=== PATIENT | female | born 1975 | race African-American/Black ===

== ENCOUNTER 2017-04-29 23:49 | Emergency (ER) | payer OTHER ==
[2017-04-30 00:01] VITALS: BP 121/75; PULSE 83; TEMP 98.3; BMI 25.9
== END 2017-04-30 01:48 | disposition left against medical advice (07) ==
LOC: JER 23:49
DX: Z53.21 Procedure and treatment not carried out due to patient leaving prior to being seen by health care provider (principal)
CPT/HCPCS: 99281-25

== ENCOUNTER 2018-05-09 04:55 | Day surgery (SDC) | payer OTHER ==
[~2018-05-09 04:55] MED LIST: ACETAMINOPHEN 325 MG TABLET (FP) PO PRN; ACETYLCHOLINE 1:100 INTRA-OCUL 20 MG/2 ML KIT IO ONE; OFLOXACIN 0.3% OPHTHALMIC SOLUTION 5 ML BOTTLE OP SCH; TRIAMCINOLONE ACET 40MG/1ML VIAL IM ONE
[2018-05-09] MEDS ORDERED: OFLOXACIN 0.3% OPHTHALMIC SOLUTION 5 ML BOTTLE ONE (10:26)
[2018-05-09 10:38] VITALS: BMI 39.5
[2018-05-09] MEDS ORDERED: TRIAMCINOLONE ACET 40MG/1ML VIAL ONE (12:52)
[2018-05-09] MEDS ORDERED: LIDOCAINE HCL/PF 2% SDV 5ML VIAL ONE (12:56)
[2018-05-09] MEDS ORDERED: MIDAZOLAM HCL 2 MG/2 ML SINGLE DOSE VIAL ONE (12:56)
[2018-05-09] MEDS ORDERED: PROPOFOL 20 ML ONE (12:56)
[2018-05-09] MEDS ORDERED: DEXAMETHASONE SOD PHOSPHATE 4 MG/1 ML VIAL ONE (13:21)
[2018-05-09] MEDS ORDERED: ONDANSETRON 4 MG/2 ML VIAL IVPUSH PRN (13:37)
[2018-05-09] MEDS ORDERED: ACETYLCHOLINE 1:100 INTRA-OCUL 20 MG/2 ML KIT IO ONE (13:37)
[2018-05-09] MEDS ORDERED: oxyCODONE HCL 5 MG TABLET PO PRN (13:37)
[2018-05-09] MEDS ORDERED: LACTATED RINGERS SOLUTION 1,000 ML IV SCH (13:45)
[2018-05-09] MEDS ORDERED: NEOSTIGMINE METHYLSULFATE 0.5 MG/ML - 10 ML MDV ONE (13:59)
[2018-05-09] MEDS ORDERED: GLYCOPYRROLATE 0.2 MG/1 ML VIAL ONE (14:01)
[2018-05-09] MEDS ORDERED: SUCCINYLCHOLINE CHLORIDE 200 MG/10 ML VIAL ONE (14:03)
[2018-05-09] MEDS ORDERED: FLUORESCEIN NA 1 EA STRIP ONE (14:26)
[2018-05-09] MEDS ORDERED: TRIAMCINOLONE ACET 40MG/1ML VIAL IM ONE (14:27)
[2018-05-09] MEDS ORDERED: ONDANSETRON 4 MG/2 ML VIAL ONE (15:10)
[2018-05-09] MEDS ORDERED: PROMETHAZINE HCL 25 MG/1 ML VIAL ONE (15:29)
[2018-05-09] MEDS ORDERED: PROMETHAZINE HCL 25 MG/1 ML VIAL IVPUSH PRN (15:34)
[2018-05-09 15:48] VITALS: TEMP 98
[2018-05-09 16:46] VITALS: BP 129/79; PULSE 99
--- NOTE | 2018-05-10 00:23 | OP ---
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 POSTOPERATIVE DIAGNOSIS: Keratoconus. Associated diagnosis of corneal opacity. PROCEDURE: Penetrating keratoplasty, left eye. ANESTHESIA: General endotracheal tube intubation. COMPLICATIONS: None. PROCEDURE: The patient was brought to the operating room and correctly identified along with the operative site as well as the donor corneal tissue. The donor corneal tissue was inspected and the cornea was noted to be clear as well as the accompanying transport media, which was noted to be clear as well. The parameters of the corneal tissue were inspected. The patient was then brought to the operating room and placed under general anesthesia with endotracheal tube intubation without complication. The eye was then prepped and draped in the usual sterile fashion including 5% betadine solution in the conjunctival sac and an eyelid drape. An eyelid speculum was then placed into the left eye. The corneal diameters were measured and measured 12 mm vertically by 12.5 mm horizontally. The corneal opacity was measured and measured 8 mm. An 8.2 mm donor punch trephine was then used to create the donor cornea. Attention was then placed to the patient's cornea and the center of the cornea was marked using calipers. As well, four radial horne were made using an old medial keratotomy marker. Using a vacuum trephine, 8.0 mm, the patient's center cornea was then trephined and removed by using corneoscleral scissors to the right and left. After initial puncture with the trephine, Viscoat as well as Miochol were placed to stabilize the anterior chamber. The donor cornea was then brought into place and secured with sixteen 10-0 nylon interrupted sutures. Throughout the process of suturing as well as tying, the anterior chamber was reformed with Miochol and then BSS. At the end of the procedure, all 16 nylon sutures were noted to be intact. The anterior chamber formed. The knots were rotated into the donor cornea and the eye was inspected with a fluorescein strip, which was noted to be Piyush negative. Subconjunctival Kenalog was given. Topical vancomycin given. The eye was patched and shielded and the patient as aroused from general anesthesia without complication. IVORY KANG M.D. [id number]
--- NOTE | 2018-05-11 17:10 | PATH ---
Surgical Pathology Report Patient Name: REBECCA MEZA Med. Rec. #: [id number] /Age/Gender: 1975 (Age: 43) / F Account: [id number] Location: [facility] SURGICAL Taken: 05/09/2018 Received: 05/10/2018 Reported: 05/11/2018 Physicians: Emeterio Conde M.D. Specimen(s) Received LEFT EYE CORNEA Clinical History Keratoconus left eye Final Diagnosis PATIENT CORNEA LEFT EYE, EXCISIONAL BIOPSY: CORNEA WITH FOCAL THINNING OF THE STROMA, DISRUPTION OF THE EPITHELIAL BASEMENT MEMBRANE, AND FIBROSIS, CONSISTENT WITH KERATOCONUS. Electronically Signed Stephani Luciano M.D. Gross Description Received in formalin labeled "patient cornea left eye," is a 0.7 cm diameter lens shaped, crystalline structure consistent with a cornea. The specimen is trisected and entirely submitted in one cassette. /05/10/2018 saudi/05/10/2018
== END 2018-05-09 17:15 | disposition home or self-care (01) ==
LOC: JASU-SURG 04:55
PROVIDERS: ATTEND Ophthalmology
PROC: 08R9XKZ Replacement of Left Cornea with Nonautologous Tissue Substitute, External Approach (ICD-10-PCS; principal; 2018-05-09 12:00)
DX: H18.602 Keratoconus, unspecified, left eye (principal); H17.9 Unspecified corneal scar and opacity
CPT/HCPCS: 84703; 87070; 87075; 87102; 87205; 87210; 88304-TC

== ENCOUNTER 2020-11-19 10:29 | Emergency (ER) | payer OTHER ==
[2020-11-19 10:53] VITALS: BMI 41.1
[2020-11-19 12:21] LABS: BASO % 1.5 % (0-2.0); EOS % 2.9 % (0-4.5); HEMATOCRIT 43.2 % (32.4-45.2); LYMPH % 52.1 % (8-40); MCHC 32.5 g/dl (32.0-36.0); MEAN CELL VOLUME 83.2 fl (80-96); MEAN PLT VOLUME 8.8 fl (7.5-11.1); MONO % 7.9 % (3.8-10.2); NEUT % 35.6 % (42.8-82.8); PLATELET COUNT 289 K/MM3 (134-434); RBC 5.19 M/mm3 (3.60-5.2); RDW 13.3 % (11.6-15.6); WHITE BLOOD COUNT 5.4 K/mm3 (4.0-10.0)
[2020-11-19 12:26] LABS: INR 1.01 (0.83-1.09); PROTHROMBIN TIME (PATIENT) 12.2 SEC (9.7-13.0)
[2020-11-19 12:37] LABS: CHLORIDE 107 mmol/L (98-107); POTASSIUM 4.5 mmol/L (3.5-5.1); SODIUM 139 mmol/L (136-145)
[2020-11-19 12:39] LABS: ALBUMIN 3.9 g/dl (3.4-5.0); ANION GAP 4 MMOL/L (8-16); BLOOD UREA NITROGEN 11.7 mg/dL (7-18); CALCIUM 9.2 mg/dL (8.5-10.1); CO2 27 mmol/L (21-32); GLUCOSE,RANDOM 81 mg/dL (74-106)
[2020-11-19 12:42] LABS: CREATININE 0.9 mg/dL (0.55-1.3); SGOT/AST 16 U/L (15-37); SGPT/ALT 30 U/L (13-61)
[2020-11-19 12:44] LABS: BILIRUBIN,TOTAL 0.4 mg/dL (0.2-1); TOT PROT 8.4 g/dl (6.4-8.2)
[2020-11-19 12:45] LABS: ALK PHOS 74 U/L (45-117)
[2020-11-19] MEDS ORDERED: ASPIRIN 325 MG TABLET PO ONE (15:49)
[2020-11-19] MEDS ORDERED: ASPIRIN 81 MG CHEWABLE TABLETS ONE (15:55)
[2020-11-19 16:44] VITALS: BP 136/84; PULSE 88; TEMP 98.3
== END 2020-11-19 16:44 | disposition home or self-care (01) ==
LOC: JER 10:29
DX: R07.9 Chest pain, unspecified (principal)
CPT/HCPCS: 36415; 71046-TC-FY; 80053; 82550; 84443; 84484; 84703; 85025; 85610; 93005; 93010; 99285-25